=== PATIENT | male | born 1995 | race Caucasian/White ===

== ENCOUNTER 2020-05-09 07:23 | Emergency (ER) | payer OTHER ==
[~2020-05-09] VITALS: Ht 182.9 cm; Wt 122.7 kg
[~2020-05-09 07:23] MED LIST: AUGM500T34 PO; NO HOME MEDS; NORCOTAB PO; TYLE325T5 PO
[2020-05-09] MEDS ORDERED: MORPHINE 4 MG/ML 1ML VIAL/SYRINGE (J2270) IV ONE (08:30)
--- NOTE | 2020-05-09 09:08 | REPVR ---
PROCEDURE INFORMATION: Exam: XR Right Hip with Pelvis when Performed Exam date and time: 05/09/2020 8:26 AM Age: 24 years old Clinical indication: Injury or trauma; Injury history: Hit with forklift; Work related; Initial encounter; Blunt trauma (contusions or hematomas); Right; Hip; Additional info: R hip ttp, knee injury TECHNIQUE: Imaging protocol: XR Right hip with pelvis when performed. Views: 2 or 3 views. COMPARISON: No relevant prior studies available. FINDINGS: Bones/joints: Bones are intact. Hip joints and sacroiliac joints are symmetric and preserved. No acute fracture or dislocation. Soft tissues: Soft tissues are unremarkable. IMPRESSION: No acute bony abnormality is identified. Electronically signed by: Armani Choi On 05/09/2020 09:08:17 AM
--- NOTE | 2020-05-09 09:15 | REPVR ---
PROCEDURE INFORMATION: Exam: XR Right Ankle Exam date and time: 05/09/2020 8:26 AM Age: 24 years old Clinical indication: Injury or trauma; Injury history: Hit with forklift. Unable to do more than ap and lat due to patients condition. ; Work related; Initial encounter; Blunt trauma; Ankle; Right; Additional info: R ankle ttp, knee injury TECHNIQUE: Imaging protocol: XR Right ankle. Views: 1 or 2 views. COMPARISON: No relevant prior studies available. FINDINGS: Bones/joints: Bones are intact and the ankle mortise is preserved. No acute fracture or dislocation. Soft tissues: Soft tissues are unremarkable. IMPRESSION: No acute bony abnormality is identified. Electronically signed by: Armani Choi On 05/09/2020 09:14:57 AM
--- NOTE | 2020-05-09 09:24 | REPVR ---
PROCEDURE INFORMATION: Exam: XR Right Knee Exam date and time: 05/09/2020 8:26 AM Age: 24 years old Clinical indication: Injury or trauma; Injury history: Hit with forklift. Unable to do more than ap and lat due to condition. ; Work related; Initial encounter; Blunt trauma; Knee; Right; Additional info: R knee injury/deformity TECHNIQUE: Imaging protocol: XR Right knee. Views: 1 or 2 views. COMPARISON: No relevant prior studies available. FINDINGS: Bones/joints: AP and lateral views of the right knee were obtained and are limited by patient positioning. No acute fracture or dislocation. Soft tissues: Soft tissues are unremarkable. No significant joint effusion. IMPRESSION: Limited examination. No acute fracture or dislocation. Electronically signed by: Armani Choi On 05/09/2020 09:24:08 AM
[2020-05-09 09:57] VITALS: BP 135/84
== END 2020-05-09 10:00 | disposition home or self-care (01) ==
LOC: EDBD 07:23 → M ED 07:23
DX: S83.001A Unspecified subluxation of right patella, initial encounter (principal); W22.8XXA Striking against or struck by other objects, initial encounter; Y99.0 Civilian activity done for income or pay
CPT/HCPCS: 73502; 73560; 73600; 96374; 99284; J2270

== ENCOUNTER 2022-06-28 22:47 | Emergency (ER) | payer OTHER ==
[~2022-06-28] VITALS: Ht 182.9 cm; Wt 120.4 kg
[2022-06-29 04:49] LABS: BASO % 0.5 % (0.0-1.0); EOS # 0.2 10^3/uL (0.0-0.5); EOS % 2.2 % (0.0-3.0); HEMATOCRIT 43.9 % (42.0-52.0); HEMOGLOBIN 14.4 g/dl (13.5-17.5); LYMPH # 3.1 10^3/uL (1.5-5.0); LYMPH % 37.5 % (24.0-44.0); MEAN CORPUSCULAR HEMOGLOBIN 28.6 pg (27.0-33.0); MEAN CORPUSCULAR HGB CONC 32.8 g/dl (32.0-36.5); MEAN CORPUSCULAR VOLUME 87.3 fl (80.0-96.0); MONO # 0.8 10^3/uL (0.0-0.8); MONO % 9.7 % (2.0-8.0); NEUTROPHILS # 4.1 10^3/uL (1.5-8.5); NEUTROPHILS % 49.9 % (36.0-66.0); PLATELET COUNT, AUTOMATED 262 10^3/uL (150-450); RED BLOOD COUNT 5.03 10^6/uL (4.30-6.10); WHITE BLOOD COUNT 8.2 10^3/uL (4.0-10.0)
[2022-06-29 05:50] LABS: BLOOD UREA NITROGEN 21 MG/DL (9-23); CALCIUM LEVEL 9.4 MG/DL (8.5-10.1); CARBON DIOXIDE LEVEL 29 MMOL/L (20-31); CHLORIDE LEVEL 103 MMOL/L (98-107); CK-MB VALUE MASS < 1.0 NG/ML (<3.6); CPK CREATINE PHOSPHOKINASE 204 U/L (46-171); CREATININE FOR GFR 0.97 MG/DL (0.70-1.30); GLOMERULAR FILTRATION RATE > 60.0 (>60); GLUCOSE, FASTING 100 MG/DL (60-100); MB/CK RELATIVE INDEX 0.49 (< OR =4); POTASSIUM SERUM 4.4 MMOL/L (3.5-5.1); SODIUM LEVEL 141 MMOL/L (136-145)
[2022-06-29 08:13] LABS: CK-MB VALUE MASS < 1.0 NG/ML (<3.6); CPK CREATINE PHOSPHOKINASE 165 U/L (46-171); FREE T4 1.17 NG/DL (0.89-1.76); MAGNESIUM LEVEL 2.1 MG/DL (1.8-2.4); THYROID STIMULATING HORMONE 1.932 uIU/ML (0.55-4.78)
[2022-06-29] MEDS ORDERED: GI COCKTAIL 50ML BTL(HYOSCYAMINE/MAALOX/LIDOCAINE VISCOUS)(1:3:1) PO ONE (08:30)
[2022-06-29] MEDS ORDERED: ISOVUE-370 76% 100ML VIAL As Ordered ONE (08:31)
[2022-06-29] MEDS ORDERED: OMEP40CA4 PO (09:45)
[2022-06-29] MEDS ORDERED: CARA1TAB6 PO (09:45)
[2022-06-29] MEDS ORDERED: PROA1AER2 INH (09:45)
[2022-06-29 10:00] VITALS: BP 163/84
== END 2022-06-29 10:09 | disposition home or self-care (01) ==
LOC: M ED 22:47
DX: K21.9 Gastro-esophageal reflux disease without esophagitis (principal); R07.9 Chest pain, unspecified; R06.02 Shortness of breath; Z86.16 Personal history of COVID-19; R16.1 Splenomegaly, not elsewhere classified; R25.2 Cramp and spasm; F32.A Depression, unspecified; Z90.89 Acquired absence of other organs; Z79.51 Long term (current) use of inhaled steroids; Z79.899 Other long term (current) drug therapy